=== PATIENT | male | born 1940 | race Caucasian/White ===

== ENCOUNTER 2024-02-06 18:42 | Emergency (ER) | payer MEDICARE ==
--- NOTE | 2024-02-06 19:35 | ED Physician Documentation ---
PD HPI UPPER EXT INJURY - Stated complaint Stated Complaint: L HAND INJ - Chief complaint Chief Complaint: Trauma Ext - History obtained from History obtained from: Patient - Additonal information Additional information: He was working in the garage and accidentally contacted a fishing hook which is embedded in his nondominant left pinky finger. He is up-to-date on tetanus. PD PAST MEDICAL HISTORY - Past Medical History Past Medical History: Yes Cardiovascular: Hypertension - Past Surgical History Past Surgical History: No - Allergies Allergies/Adverse Reactions: Allergies Allergy/AdvReac Type Severity Reaction Status Date / Time No Known Drug Allergies Allergy Verified 02/06/24 19:08 - Social History Does the pt smoke?: No Does the pt drink ETOH?: No - Immunizations Immunizations are current?: Yes PD ED PE NORMAL - Vitals Vital signs reviewed: Yes - General General: Alert and oriented X 3, No acute distress - Extremities Extremities: Other (Treble hook with 1 jan into the pulp of the distal left pinky finger.) Results - Vitals Vitals: Vital Signs - 24 hr 02/06/24 19:03 Temperature 36.2 C L Heart Rate 50 L Respiratory 18 Rate Blood Pressure 156/91 H O2 Saturation 97 Oxygen O2 Source Room air Procedures - General procedure General procedure: Digital block with plain lidocaine was done of the left fifth finger with excellent anesthesia and then I was able to remove the fishhook with forceps. It was irrigated and covered with a Band-Aid. Departure - Departure Disposition: 01 Home, Self Care Clinical Impression: [place] injury to finger Qualifiers: Encounter type: initial encounter Laterality: left Qualified Code(s): S69.92XA - Unspecified injury of left wrist, hand and finger(s), initial encounter Condition: Good Record reviewed to determine appropriate education?: Yes Instructions: ED Puncture Wound Fish Hook Removed Forms: PCP List
[2024-02-06] MEDS: lidocaine 1% 20 ML MDV SUBQ ONE (19:48)
[2024-02-06 20:02] VITALS: BP 150/88; O2SAT 98
== END 2024-02-06 20:01 | disposition home or self-care (01) ==
LOC: ED 18:42
DX: S61.237A Puncture wound without foreign body of left little finger without damage to nail, initial encounter (principal); W45.8XXA Other foreign body or object entering through skin, initial encounter; I10 Essential (primary) hypertension
CPT/HCPCS: 64450; 99283